=== PATIENT | female | born 1940 | race Caucasian/White ===

== ENCOUNTER 2017-12-09 14:02 | Observation (INO) ==
[2017-12-09 14:51] LABS: Hematocrit 42.4 % (35.3-44.9); Hemoglobin 14.4 g/dL (11.5-15.4); Mean Corpuscular Hemoglobin 33.3 pg (28.0-33.3); Mean Corpuscular Volume 98.1 fL (83.0-100.0); Mean Platelet Volume 8.8 fL (9.4-12.4); Platelet Count 229 K/mcL (140-400); Red Blood Count 4.32 M/mcL (3.82-4.97); Red Cell Distribution Width 12.4 % (11.5-14.5)
[2017-12-09 15:02] LABS: Prothrombin Time 11.4 Seconds (9.4-12.1)
[2017-12-09 15:13] LABS: BUN/Creatinine Ratio 22 (6-26); Blood Urea Nitrogen 18 mg/dL (8-23); Calcium 9.7 mg/dL (8.6-10.3); Carbon Dioxide 29 mEq/L (23-29); Chloride 102 mEq/L (98-107); Glucose 101 mg/dL (70-105); Osmolality,Calculated 290 (280-300); Potassium 4.4 mEq/L (3.5-5.1); Sodium 139 mEq/L (136-145); eGFR For Non-African Americans > 60 (> 60)
[2017-12-09 15:14] LABS: Troponin I < 0.03 ng/mL (< 0.04)
[2017-12-09] MEDS ORDERED: Aspirin 81 MG TAB.CHEW PO ONE (15:36)
[2017-12-09 16:01] LABS: Bilirubin,Urine Negative (Negative); Blood,Urine Trace-intact (Negative); Clarity,Urine Clear (Clear); Color,Urine Yellow (Yellow); Glucose,Urine (UA) Normal (Normal); Ketones,Urine Negative (Negative); Leukocyte Esterase,Urine Moderate (Negative); Nitrite,Urine Negative (Negative); Protein,Urine Negative (Neg-Trace); Specific Gravity,Urine 1.015 (1.010-1.025); Urobilinogen,Urine Normal (Normal)
[2017-12-09 16:11] LABS: Bacteria,Urine Many per hpf (None-Few); RBC,Urine 0-3 per hpf (0-3); Squamous Epithelial Cell,Urine Few per lpf (None-Few)
[2017-12-09] MEDS ORDERED: Naloxone 0.4 MG/ML INJ IVP PRN (16:22)
[2017-12-09] MEDS ORDERED: Latanoprost 2.5 ML BOTTLE BOTH EYES PRN (17:26)
[2017-12-09] MEDS ORDERED: Nitroglycerin 0.4 MG TAB.SUBL SL PRN (17:26)
--- NOTE | 2017-12-09 19:23 | Emergency Department Note ---
Disposition Clinical Impression: TIA (transient ischemic attack) Disposition: Admitted As Inpatient Condition: Undetermined Time of Disposition: 15:37 (accepted by Dr García at 15:35) Neuro HPI - General Chief Complaint: ED Neuro Symptoms/Deficit Stated Complaint: FREQUENT FALLS Time Seen by Provider: 12/09/17 14:12 Source: patient, family Limitations: no limitations Nursing Notes Reviewed: Yes Vital Signs Reviewed: Yes - History of Present Illness HPI Narrative: Patient is a pleasant 77 yo F with past medical history significant for HTN, CVA, CAD, Dyslipidemia and arthritis who is presenting to [facility] Emergency Room with a chief complaint off fall after she might experienced left side numbness and heaviness.She already had stroke last December and underwent rehab and PT. She still has residual left side numbness and states her symptoms are aggarvated. No difficulty finding the word. Her daughter in the room states these are thge same symptoms and exam no changes. Pt later on was ablke to ambulate and walk to the bath rom without any assistance or a walker. Patient denies any fever, chills or night sweats. Pt also denies any eye pain or visual disturbances. There is no sore throat, nasal drainages or facial congestion. There is no chest pain, palpitations or racing heart. Pt also denies any shortness of breath, cough or chest congestion. There is no abdominal pain, yasmine sea, vomiting or diarrhea. There is no urgency, frequency or dysuria. There is no muskulo-skeletal pain, arthralgia or back pain. Patient also denies any rash, edema or pruritus. There is no other neurological manifestations, no headache, no vertigo or generalized or focal weakness. The patient also denies any anxiety, depression, hallucinations and has no homicidal or suicidal ideations. There is no polyuria, polydipsia or recent weight change. There is no easy bruising or bleeding. Review of other systems is otherwise negative except above. Onset of Symptoms Date: 12/09/17 Onset of Symptoms Time: 12:30 Symptom Onset Unknown: Yes Timing confirmed by: caregiver Location: left arm, left leg History of same: Yes Severity: mild Quality: numbness Symptoms Improving: Yes - Related Data Home Medications: Home Medications Medication Instructions Recorded Confirmed Albuterol Sulfate [Ventolin Hfa] 2 puff IH Q6H PRN 02/10/17 12/09/17 Bimatoprost [Lumigan] 1 drop BOTH EYES DAILY PRN 02/10/17 12/09/17 Cholecalciferol (D-3) [Vitamin D] 1,000 unit PO DAILY 02/10/17 12/09/17 Diclofenac Sodium [Voltaren] 2 gm TP Q8H 02/10/17 12/09/17 FLUoxetine HCl [Fluoxetine HCl] 40 mg PO DAILY 02/10/17 12/09/17 Levothyroxine Sodium [Levoxyl] 125 mcg PO DAILY 02/10/17 12/09/17 Metoprolol [Lopressor] 100 mg PO BID 02/10/17 12/09/17 Nitroglycerin [Nitrostat] 0.4 mg SL AD PRN 02/10/17 12/09/17 Pravastatin Sodium [Pravachol] 40 mg PO DAILY 02/10/17 12/09/17 Ranitidine HCl [Acid Tnt Powder Worker] 150 mg PO HS 02/10/17 12/09/17 cloNIDine HCl [CloNIDine HCl] 0.1 mg PO HS 02/10/17 12/09/17 Clopidogrel [Plavix] 75 mg PO DAILY 07/14/17 12/09/17 Aspirin [Lo-Dose Aspirin EC] 81 mg PO DAILY 12/09/17 12/09/17 Dicyclomine [Bentyl] 10 mg PO AD PRN 12/09/17 12/09/17 amLODIPine [Norvasc] 5 mg PO DAILY 12/09/17 12/09/17 Allergies/Adverse Reactions: Allergies Allergy/AdvReac Type Severity Reaction Status Date / Time celecoxib [From Celebrex] Allergy Rash Verified 07/14/17 06:23 ibuprofen [From Motrin] Allergy Rash Verified 07/14/17 06:23 Penicillins [PCN] Allergy Swelling Verified 07/14/17 06:23 of Lip/Tongue/Throat Sulfa (Sulfonamide Allergy Rash Verified 07/14/17 06:23 Antibiotics) All systems ED: reviewed and negative except as stated. Review of Systems: As Per HPI Constitutional: Denies: fever, chills, weakness, weight change Eyes: Denies: eye pain, eye discharge, vision change ENT ED: Denies: ear pain, throat pain, dental pain, hearing loss, epistaxis, congestion, dysphagia Cardiovascular: Denies: chest pain, palpitations, dyspnea on exertion, edema, syncope Respiratory: Denies: cough, dyspnea, wheezes, hemoptysis, stridor Gastrointestinal: Denies: abdominal pain, nausea, vomiting, diarrhea, constipation, hematemesis, melena, hematochezia Genitourinary: Denies: dysuria, frequency, hematuria, discharge Musculoskeletal: Denies: back pain, neck pain, arthralgia, myalgia Integumentary: Denies: rash, abrasion, lesions Neurological: Reports: numbness. Denies: headache, paresthesias, confusion, abnormal gait, vertigo Psychiatric: Denies: anxiety, depression, suicidal thoughts, homicidal thoughts, auditory hallucinations, visual hallucinations Endocrine: Denies: fatigue Hematological/Lymphatic: Denies: easy bleeding, easy bruising Allergic/Immunologic: Denies: facial swelling, urticaria Past Medical History - Past Medical History Medical history: Reports: arthritis, coronary artery disease, CVA, GERD, hyperlipidemia, hypertension, myocardial infarction, osteoporosis, thyroid disease, other Surgical history: Reports: carotid endarterectomy, cholecystectomy, hysterectomy, orthopedic, other Psychiatric history: Reports: anxiety, depression - Social History Smoking Status: Never smoker Smokeless Tobacco Status: No Alcohol use: Reports: none Drug use: Reports: none Physical Exam - General Limitations: no limitations General appearance: alert - Head Head exam: atraumatic, normocephalic, normal inspection - Eye Eye exam: Present: normal appearance, PERRL, EOMI - Expanded Eye Exam Pupils: Left: reactive - ENT ENT exam: normal exam, normal oropharynx, mucous membranes moist - Expanded ENT Exam External ear exam: Present: normal external inspection Mouth exam: Present: normal external inspection Teeth exam: Present: normal inspection Throat exam: Present: normal inspection - Neck Neck exam: Present: normal inspection, full ROM, trachea midline - Chest Chest inspection: Present: normal inspection, symmetric chest wall rise - Respiratory Respiratory exam: Present: normal lung sounds bilaterally - Cardiovascular Cardiovascular exam: Present: regular rate, normal rhythm, normal heart sounds - Abdominal Exam Abdominal exam: Present: soft, Non-Tender. Absent: tenderness, distention, guarding, rebound, rigidity - Extremities Exam Extremities exam: Present: normal inspection, full ROM. Absent: tenderness, pedal edema - Expanded Upper Extremity Exam Shoulder exam: Present: normal inspection, full ROM Arm exam: Present: normal inspection, full ROM Elbow exam: Present: normal inspection, full ROM Forearm/Wrist exam: Present: normal inspection, full ROM Hand exam: Present: normal inspection, full ROM Vascular exam: Normal: capillary refill, radial pulse - Expanded Lower Extremity Exam Hip/Pelvis exam: Present: normal inspection, full ROM Upper leg exam: Present: normal inspection, full ROM Knee exam: Present: normal inspection, full ROM Lower leg exam: Present: normal inspection, full ROM Ankle exam: Present: normal inspection, full ROM Foot/toe exam: Present: normal inspection, full ROM Neurovascular/Tendon exam: Absent: motor deficit, sensory deficit, tendon deficit - Back Exam Back exam: Present: normal inspection, full ROM. Absent: tenderness - Neurological Exam Neurological exam: Present: alert, oriented X3, CN II-XII intact (except baseline subtle unequal faciolabial fold - chronic per the daughter) - Expanded Neurological Exam Patient oriented to: Present: person, place, time Cerebellar function: normal gait Motor strength - LUE: 3/5 Motor strength - RUE: 5/5 Motor strength - LLE: 3/5 Motor strength - RLE: 5/5 Coma Scale Eye Opening: Spontaneous Coma Scale Motor Response: Obeys Commands Coma Scale Verbal Response: Oriented Coma Scale Total: 15 - Psychiatric Psychiatric exam: Present: normal affect, normal mood - Skin Skin exam: Present: warm, dry, intact, normal color Course Vital Signs Temperature 98.8 F 12/09/17 14:07 Pulse Rate 64 12/09/17 14:07 Respiratory Rate 20 12/09/17 14:07 Blood Pressure 169/80 12/09/17 14:07 O2 Sat by Pulse Oximetry 95 12/09/17 14:07 Temperature 98.3 F 12/09/17 15:31 Pulse Rate 57 12/09/17 15:59 Respiratory Rate 13 12/09/17 15:59 Blood Pressure 158/55 12/09/17 15:59 O2 Sat by Pulse Oximetry 93 12/09/17 15:59 Oxygen Delivery Oxygen Delivery Room Air Neuro Symptoms/Deficit - MDM Narrative Medical decision making narrative: Pt's symptoms totally resolved and was able to ambulate with no assistance to the bathroom and without a walker - Differential Diagnosis Likely: cerebrovascular accident, subarachnoid hemorrhage, transient cerebral ischemia, multiple sclerosis, convulsions - Medical Records Medical records reviewed: Yes I reviewed the patient's medical records. - Lab Data Lab results reviewed: Yes I reviewed the patient's lab results. Result diagrams: 12/09/17 14:45 12/09/17 14:45 Lab Results 12/09/17 12/09/17 12/09/17 Range/Units 14:45 14:45 14:45 WBC 9.8 (4.3-11.1) K/mcL RBC 4.32 (3.82-4.97) M/mcL Hgb 14.4 (11.5-15.4) g/dL Hct 42.4 (35.3-44.9) % MCV 98.1 (83.0-100.0) fL MCH 33.3 (28.0-33.3) pg MCHC 34.0 (31.6-35.5) g/dL RDW 12.4 (11.5-14.5) % Plt Count 229 (140-400) K/mcL MPV 8.8 L (9.4-12.4) fL PT 11.4 (9.4-12.1) Seconds INR 1.0 APTT 31.0 (26.0-36.0) Seconds Sodium 139 (136-145) mEq/L Potassium 4.4 (3.5-5.1) mEq/L Chloride 102 (98-107) mEq/L Carbon Dioxide 29 (23-29) mEq/L BUN 18 (8-23) mg/dL Creatinine 0.81 (0.60-1.20) mg/dL Est GFR ( Amer) > 60 (> 60) Est GFR (Non-Af Amer) > 60 (> 60) BUN/Creatinine Ratio 22 (6-26) Glucose 101 (70-105) mg/dL Calculated Osmolality 290 (280-300) Calcium 9.7 (8.6-10.3) mg/dL Troponin I < 0.03 (< 0.04) ng/mL Urine Color (Yellow) Urine Clarity (Clear) Urine pH (5.0-8.0) pH Units Ur Specific [place] (1.010-1.025) Urine Protein (Neg-Trace) mg/dL Urine Glucose (UA) (Normal) mg/dL Urine Ketones (Negative) mg/dL Urine Blood (Negative) Urine Nitrite (Negative) Urine Bilirubin (Negative) Urine Urobilinogen (Normal) mg/dL Ur Leukocyte Esterase (Negative) Urine Microscopic RBC (0-3) per hpf Urine Microscopic WBC (0-3) per hpf Ur Squamous Epith Cells (None-Few) per lpf Urine Bacteria (None-Few) per hpf Ur Culture Indicated? (NO) 12/09/17 Range/Units 15:35 WBC (4.3-11.1) K/mcL RBC (3.82-4.97) M/mcL Hgb (11.5-15.4) g/dL Hct (35.3-44.9) % MCV (83.0-100.0) fL MCH (28.0-33.3) pg MCHC (31.6-35.5) g/dL RDW (11.5-14.5) % Plt Count (140-400) K/mcL MPV (9.4-12.4) fL PT (9.4-12.1) Seconds INR APTT (26.0-36.0) Seconds Sodium (136-145) mEq/L Potassium (3.5-5.1) mEq/L Chloride (98-107) mEq/L Carbon Dioxide (23-29) mEq/L BUN (8-23) mg/dL Creatinine (0.60-1.20) mg/dL Est GFR ( Amer) (> 60) Est GFR (Non-Af Amer) (> 60) BUN/Creatinine Ratio (6-26) Glucose (70-105) mg/dL Calculated Osmolality (280-300) Calcium (8.6-10.3) mg/dL Troponin I (< 0.04) ng/mL Urine Color Yellow (Yellow) Urine Clarity Clear (Clear) Urine pH 7.0 (5.0-8.0) pH Units Ur Specific [place] 1.015 (1.010-1.025) Urine Protein Negative (Neg-Trace) mg/dL Urine Glucose (UA) Normal (Normal) mg/dL Urine Ketones Negative (Negative) mg/dL Urine Blood Trace-intact H (Negative) Urine Nitrite Negative (Negative) Urine Bilirubin Negative (Negative) Urine Urobilinogen Normal (Normal) mg/dL Ur Leukocyte Esterase Moderate H (Negative) Urine Microscopic RBC 0-3 (0-3) per hpf Urine Microscopic WBC 3-5 H (0-3) per hpf Ur Squamous Epith Cells Few (None-Few) per lpf Urine Bacteria Many H (None-Few) per hpf Ur Culture Indicated? YES A (NO) - Radiology Data Radiology results reviewed: Yes I reviewed the patient's radiology results. negative CT scan - EKG Data EKG attestation: Yes I reviewed and interpreted this EKG. EKG shows normal: sinus rhythm NIH Stroke Scale - Level of Consciousness LOC: Alert - LOC Questions LOC Questions: Answers both correctly - LOC Commands LOC Commands: Performs both correctly - Best Gaze Best Gaze: Normal - Visual Visual: No visual loss - Facial Palsy Facial Palsy: Normal - Motor Arms Motor Arm-Left: No drift for 10 seconds Motor Arm-Right: No drift for 10 seconds - Motor Legs Motor Leg-Left: No drift for 5 seconds Motor Leg-Right: No drift for 5 seconds - Limb Ataxia Limb Ataxia: Absent of affected limb too weak to perform exam - Sensory Sensory: Mild to moderate loss, "not as sharp" - Best Language Best Language: No aphasia - Dysarthria Dysarthria: Normal - Extinction and Inattention Extinction and Inattention: Normal - NIHSS Total Score NIHSS Total Score: 1 TPA Checklist - LKW: 3-4.5 hrs Add. Warnings/Precautions Patient/family understanding: The patient/family members have been counseled and understood the risk, benefit, and alternatives of treatment.
[2017-12-09] MEDS ORDERED: cloNIDine HCl 0.1 MG TABLET PO SCH (21:00)
[2017-12-09] MEDS ORDERED: Famotidine 20 MG TABLET PO SCH (21:00)
[2017-12-09] MEDS: Acetaminophen 325 MG TABLET PO PRN (22:21)
[2017-12-10] MEDS: DICLOFENAC TP SCH ×2 (00:22→10:02)
[2017-12-10 03:44] LABS: Basophils % 0.6 %; Eosinophils # 0.2 K/mcL (0.0-0.6); Hematocrit 36.9 % (35.3-44.9); Hemoglobin 12.4 g/dL (11.5-15.4); Immature Granulocytes % 0.4 % (0-4); Lymphocytes # 1.8 K/mcL (0.6-4.6); Lymphocytes % 25.9 %; Mean Corpuscular HGB Conc 33.6 g/dL (31.6-35.5); Mean Corpuscular Hemoglobin 33.2 pg (28.0-33.3); Mean Corpuscular Volume 98.9 fL (83.0-100.0); Mean Platelet Volume 9.1 fL (9.4-12.4); Monocytes # 0.7 K/mcL (0.0-1.3); Monocytes % 10.1 %; Neutrophils # 4.2 K/mcL (1.6-8.9); Platelet Count 191 K/mcL (140-400); Red Blood Count 3.73 M/mcL (3.82-4.97); Red Cell Distribution Width 12.6 % (11.5-14.5)
[2017-12-10 03:54] LABS: Prothrombin Time 11.4 Seconds (9.4-12.1)
[2017-12-10 03:57] LABS: Activated Partial Thrombo Time 29.3 Seconds (26.0-36.0)
[2017-12-10 04:07] LABS: BUN/Creatinine Ratio 28 (6-26); Blood Urea Nitrogen 19 mg/dL (8-23); Carbon Dioxide 27 mEq/L (23-29); Chloride 104 mEq/L (98-107); Chol/HDL Ratio 4.3 (0-4.9); Cholesterol 154 mg/dL (< 200); Glucose 134 mg/dL (70-105); HDL Cholesterol 36 mg/dL (40-59); LDL Cholesterol,Calculated 83 mg/dL (0-99); Magnesium 2.1 mg/dL (1.6-2.6); Osmolality,Calculated 292 (280-300); Phosphorous 3.3 mg/dL (2.7-4.5); Potassium 3.9 mEq/L (3.5-5.1); Sodium 139 mEq/L (136-145); Triglycerides 176 mg/dL (< 150); eGFR For Non-African Americans > 60 (> 60)
[2017-12-10 06:08] VITALS: BP 144/84
[2017-12-10] MEDS: Acetaminophen 325 MG TABLET PO PRN (08:27)
[2017-12-10] MEDS ORDERED: amLODIPine 5 MG TABLET PO SCH (09:00)
[2017-12-10] MEDS ORDERED: Aspirin Enteric Coated 81 MG Tablet PO SCH (09:00)
[2017-12-10] MEDS ORDERED: FLUoxetine 20 MG CAPSULE PO SCH (09:00)
[2017-12-10] MEDS ORDERED: Cholecalciferol (D-3) 1,000 UNIT TABLET PO SCH (09:00)
--- NOTE | 2017-12-10 09:58 | Internal Med History&Physical ---
Date of Encounter: 12/10/17 Time of Encounter: 09:30 Assessment and Plan (1) Fall Current visit: Yes Status: Acute Sounds mechanical rather than neurologic etiology. She denies significant injury. She wishes to be discharged home. Qualifiers: Encounter type: initial encounter Qualified Code(s): W19.XXXA - Unspecified fall, initial encounter (2) Hypertension Current visit: Yes Status: Chronic Continue Norvasc, clonidine, and Lopressor Qualifiers: Hypertension type: essential hypertension Qualified Code(s): I10 - Essential (primary) hypertension (3) CAD (coronary artery disease) Current visit: Yes Status: Chronic Continue aspirin, Plavix, Norvasc, and Lopressor Qualifiers: Coronary Disease-Associated Artery/Lesion type: unspecified vessel or lesion type [place] vs. transplanted heart: habemat[place]l heart Associated angina: angina presence unspecified Qualified Code(s): I25.10 - Atherosclerotic heart disease of [place] coronary artery without angina pectoris (4) Hypothyroidism Current visit: Yes Status: Chronic TSH was normal at 1.639 on 11/07/2017. Continue present dose Synthroid Qualifiers: Hypothyroidism type: unspecified Qualified Code(s): E03.9 - Hypothyroidism, unspecified Internal Medicine - H&P: HPI Chief complaint: Fall Admitted From: Emergency Dept Plans for Post Hospital Care: Home History of present illness: Ms. Walker is a 77 year old female who came to emergency room after experiencing a fall at home. She states she was attempting to get off the couch to answer the phone and had weakness in her left leg causing her to lose her balance and fall to the floor. There was no significant injury. She was able to get off the floor with the assistance of a home health care provider who was present at the time. She was brought to emergency room and evaluated and was felt to deserve overnight observation. She denies any significant injury. She states she typically uses a walker to ambulate in her house. She had previous fall approximately 3 weeks ago without significant injury. She reports a CVA December 2016 with left sided numbness and weakness. She was hospitalized at [facility] in [place] and transition to a rehabilitation facility for 6 weeks of inpatient therapy. She has continued outpatient therapy with home health services until very recently. She states she feels back to her baseline now and wishes to be discharged home. She denies other previous strokes, seizures, or other neurologic problems. Past Med Surg Social Fam HX - Past Medical History Medical history: arthritis, coronary artery disease, CVA, GERD, hyperlipidemia, hypertension, myocardial infarction, osteoporosis, thyroid disease, other Additional medical history: IBS Psychiatric history: anxiety, depression - Past Surgical History Surgical History: carotid endarterectomy, cholecystectomy, hysterectomy, orthopedic, other - Social History Smoking Status: Never smoker Smokeless Tobacco Status: No Alcohol use: none Drug use: none - Family History Father Living Status: Hx Family Cardiac Disorders: Yes ([place]) Internal Medicine - H&P: Meds Albuterol Sulfate [Ventolin Hfa] 2 puff IH Q6H PRN 02/10/17 [History] Bimatoprost [Lumigan] 1 drop BOTH EYES DAILY PRN 02/10/17 [History] Cholecalciferol (D-3) [Vitamin D] 1,000 unit PO DAILY 02/10/17 [History] Diclofenac Sodium [Voltaren] 2 gm TP Q8H 02/10/17 [History] FLUoxetine HCl [Fluoxetine HCl] 40 mg PO DAILY 02/10/17 [History] Levothyroxine Sodium [Levoxyl] 125 mcg PO DAILY 02/10/17 [History] Metoprolol [Lopressor] 100 mg PO BID 02/10/17 [History] Nitroglycerin [Nitrostat] 0.4 mg SL AD PRN 02/10/17 [History] Pravastatin Sodium [Pravachol] 40 mg PO DAILY 02/10/17 [History] Ranitidine HCl [Acid Kiln Operator] 150 mg PO HS 02/10/17 [History] cloNIDine HCl [CloNIDine HCl] 0.1 mg PO HS 02/10/17 [History] Clopidogrel [Plavix] 75 mg PO DAILY 07/14/17 [History] Aspirin [Lo-Dose Aspirin EC] 81 mg PO DAILY 12/09/17 [History] Dicyclomine [Bentyl] 10 mg PO AD PRN 12/09/17 [History] amLODIPine [Norvasc] 5 mg PO DAILY 12/09/17 [History] Allergy/AdvReac Type Severity Reaction Status Date / Time celecoxib [From Celebrex] Allergy Rash Verified 07/14/17 06:23 ibuprofen [From Motrin] Allergy Rash Verified 07/14/17 06:23 Penicillins [PCN] Allergy Swelling Verified 07/14/17 06:23 of Lip/Tongue/Throat Sulfa (Sulfonamide Allergy Rash Verified 07/14/17 06:23 Antibiotics) All Systems PM: A 10-system review of systems was performed and is negative for pertinent findings except as documented above in the HPI. Review of systems: Gen.: She states her weight has been stable the past few months Cardiovascular: She has history of hypertension. She has known ASHD status post [place] 1989. Her most recent heart catheter was 2013 without intervention. She denies any stents or CABG surgery. She claims a diagnosis of CHF. She is uncertain if she has paroxysmal atrial fibrillation but states she has had "irregular heartbeat" in the past. She reports 2 left carotid endarterectomy surgeries in the past. Respiratory: She is a lifelong nonsmoker and denies chronic lung disease GI: She has had cholecystectomy. She denies disorders of her liver or exocrine pancreas : She has had multiple UTIs in the past. She denies other kidney or bladder disorders. Neurologic: As per history of present illness Endocrine: She has hypothyroidism and hyperlipidemia. She denies diabetes. Hematology/oncology: She denies blood disorders cancers or anemia Psychiatric: She denies anxiety depression or other mental health issues [place] skeletal: She has DJD but denies gout or other bone joint or muscle disorders. - Constitutional Vitals: Temp Pulse Resp BP Pulse Ox 98.2 F 62 16 144/84 95 12/10/17 06:02 12/10/17 06:02 12/10/17 06:02 12/10/17 06:02 12/10/17 06:02 Exam: Gen.: She is a well-developed well-nourished female sitting in a chair at bedside resting comfortably who appears in no acute distress HEENT: Head is atraumatic and normocephalic. Eyes: EOMI. There is no scleral icterus. Mouth: Mucosa is moist. Neck: Supple and nontender. There is no thyromegaly or adenopathy noted. Heart: Regular without murmurs gallops or ectopics Lungs: No wheezes or crackles are heard. Abdomen: Soft and nontender. Exam is limited because she is in the seated position. Extremities: There is no cyanosis edema or clubbing noted. Dorsalis pedis and posttibial pulses are 1-2 over 2 bilaterally. Neurologic: Mental status: She is talkative and a good historian. Cranial nerves: Smile is symmetric. Forehead wrinkles bilaterally. Tongue protrudes midline. EOMI. Motor: She has slight left arm pronator drift. Ankle and knee flexion and extension strength against resistance is 2 over 2 bilaterally. Cerebellar: Finger to nose is intact bilaterally. Skin: Warm and dry Internal Med - H&P Results - Labs CBC & Chem 7: 12/10/17 02:50 12/10/17 02:50 Labs: Short CBC 12/09/17 12/10/17 Range/Units 14:45 02:50 WBC 9.8 7.0 (4.3-11.1) K/mcL Hgb 14.4 12.4 D (11.5-15.4) g/dL Hct 42.4 36.9 (35.3-44.9) % Plt Count 229 191 (140-400) K/mcL Neutrophils # 4.2 (1.6-8.9) K/mcL BMP 12/09/17 12/10/17 14:45 02:50 Sodium 139 139 Potassium 4.4 3.9 Chloride 102 104 Carbon Dioxide 29 27 BUN 18 19 Creatinine 0.81 0.67 Glucose 101 134 H Calcium 9.7 9.0 Cardiac Enzymes 12/09/17 12/09/17 12/10/17 Range/Units 14:45 21:00 04:15 Troponin I < 0.03 < 0.03 < 0.03 (< 0.04) ng/mL 12/10/17 Range/Units 08:35 Troponin I < 0.03 (< 0.04) ng/mL Urine 12/09/17 Range/Units 15:35 Urine Color Yellow (Yellow) Urine Clarity Clear (Clear) Urine pH 7.0 (5.0-8.0) pH Units Ur Specific [place] 1.015 (1.010-1.025) Urine Protein Negative (Neg-Trace) mg/dL Urine Glucose (UA) Normal (Normal) mg/dL - Impressions ITS Impressions Cervical Spine CT 12/09/17 14:17 IMPRESSION: No acute osseous abnormality of the cervical spine. Multilevel degenerative disc disease with facet arthropathy and resultant neural foraminal stenosis. If there is further concern for infection, nerve root compression or disc herniation correlation to MRI imaging would be recommended. D/ /09/2017 14:39:28 Constantine Randle MD / [facility] Interpreting Provider: Constantine Randle MD Head CT 12/09/17 14:17 IMPRESSION: No acute intracranial abnormality. Age related changes including chronic small vessel ischemic disease and cerebral atrophy. D/ / 12/09/2017 14:38:42 Kimberly Duarte MD / [facility] Interpreting Provider: Kimberly Duarte MD
--- NOTE | 2017-12-10 10:08 | Discharge Summary ---
Orders not resulted at time of discharge: Pending orders 12/09/17 14:24 ECG 12 lead ECG [ECG] Stat 12/09/17 15:35 Culture,Urine [RM] Stat Date of Encounter: 12/10/17 Time of Encounter: 09:30 - Discharge Diagnosis (1) Fall Priority: Primary Status: Acute Qualifiers: Encounter type: initial encounter Qualified Code(s): W19.XXXA - Unspecified fall, initial encounter (2) Hypertension Priority: Secondary Status: Chronic Qualifiers: Hypertension type: essential hypertension Qualified Code(s): I10 - Essential (primary) hypertension (3) CAD (coronary artery disease) Priority: Secondary Status: Chronic Qualifiers: Coronary Disease-Associated Artery/Lesion type: unspecified vessel or lesion type [place] vs. transplanted heart: [place] heart Associated angina: angina presence unspecified Qualified Code(s): I25.10 - Atherosclerotic heart disease of [place] coronary artery without angina pectoris (4) Hypothyroidism Priority: Secondary Status: Chronic Qualifiers: Hypothyroidism type: unspecified Qualified Code(s): E03.9 - Hypothyroidism, unspecified Hospital course: Ms. Walker is a 77 year old female who came to emergency room after experiencing a fall at home. She states she was attempting to get off the couch to answer the phone and had weakness in her left leg causing her to lose her balance and fall to the floor. There was no significant injury. She was able to get off the floor with the assistance of a home health care provider who was present at the time. She was brought to emergency room and evaluated and was felt to deserve overnight observation. Initial orders were written by the emergency room physician. I saw her on December 10 and performed a history and physical. When I saw her she stated she felt back to her baseline. She denied significant injury from the fall. She denies any neurologic symptoms associated with the fall. She wished to be discharged home which I felt was stable. She will follow with her PCP Dr. Moran within 1 week. I encouraged her to use her walker for ambulation at all times. - Time Spent with Patient Total time spent providing and/or coordinating discharge services: - Discharge Medications Home Medications: Albuterol Sulfate [Ventolin Hfa] 2 puff IH Q6H PRN 02/10/17 [History] Bimatoprost [Lumigan] 1 drop BOTH EYES DAILY PRN 02/10/17 [History] Cholecalciferol (D-3) [Vitamin D] 1,000 unit PO DAILY 02/10/17 [History] Diclofenac Sodium [Voltaren] 2 gm TP Q8H 02/10/17 [History] FLUoxetine HCl [Fluoxetine HCl] 40 mg PO DAILY 02/10/17 [History] Levothyroxine Sodium [Levoxyl] 125 mcg PO DAILY 02/10/17 [History] Metoprolol [Lopressor] 100 mg PO BID 02/10/17 [History] Nitroglycerin [Nitrostat] 0.4 mg SL AD PRN 02/10/17 [History] Pravastatin Sodium [Pravachol] 40 mg PO DAILY 02/10/17 [History] Ranitidine HCl [Acid Hand Cigar Making Supervisor] 150 mg PO HS 02/10/17 [History] cloNIDine HCl [CloNIDine HCl] 0.1 mg PO HS 02/10/17 [History] Clopidogrel [Plavix] 75 mg PO DAILY 07/14/17 [History] Aspirin [Lo-Dose Aspirin EC] 81 mg PO DAILY 12/09/17 [History] Dicyclomine [Bentyl] 10 mg PO AD PRN 12/09/17 [History] amLODIPine [Norvasc] 5 mg PO DAILY 12/09/17 [History] Allergies/Adverse Reactions: Allergy/AdvReac Type Severity Reaction Status Date / Time celecoxib [From Celebrex] Allergy Rash Verified 07/14/17 06:23 ibuprofen [From Motrin] Allergy Rash Verified 07/14/17 06:23 Penicillins [PCN] Allergy Swelling Verified 07/14/17 06:23 of Lip/Tongue/Throat Sulfa (Sulfonamide Allergy Rash Verified 07/14/17 06:23 Antibiotics) Date of admission: 12/09/17 16:25 Primary care physician: Marshall Moran DO - Constitutional Vitals: Temp Pulse Resp BP Pulse Ox 98.2 F 62 16 144/84 95 12/10/17 06:02 12/10/17 06:02 12/10/17 06:02 12/10/17 06:02 12/10/17 06:02 - Patient Status Disposition: Home Health Service Condition: Fair - Discharge Instructions Follow Up With: Marshall Moran DO [Primary Care Provider] - 1 week - Diet and Activity Activity: resume usual activities as tolerated Diet: advance to your usual diet
--- NOTE | 2017-12-10 10:09 | Physician Discharge Referral ---
Home Health/Hosp Referral Info Transfer to: Home Health Attending Provider: Jonathan Provider in Charge Post Discharge: PCP (Marshall Moran D.O.) - Diagnosis (1) Fall Priority: Primary Status: Acute (2) Hypertension Priority: Secondary Status: Chronic (3) CAD (coronary artery disease) Priority: Secondary Status: Chronic (4) Hypothyroidism Priority: Secondary Status: Chronic - Respiratory Orders Smoking Cessation: Smoking cessation has been advised. For more information, call the [place] Tobacco Quit Line at 6-334-VUKZ-NOW. - Diet/Nutrition Diet/Nutrition Orders: Cardiac - Activity Activity Orders: Walker - Services Needed Following services are medically necessary services: Nursing, Home Health Aide, Physical Therapy, Occupational Therapy - Transfer Medications Home Medications: Albuterol Sulfate [Ventolin Hfa] 2 puff IH Q6H PRN 02/10/17 [History] Bimatoprost [Lumigan] 1 drop BOTH EYES DAILY PRN 02/10/17 [History] Cholecalciferol (D-3) [Vitamin D] 1,000 unit PO DAILY 02/10/17 [History] Diclofenac Sodium [Voltaren] 2 gm TP Q8H 02/10/17 [History] FLUoxetine HCl [Fluoxetine HCl] 40 mg PO DAILY 02/10/17 [History] Levothyroxine Sodium [Levoxyl] 125 mcg PO DAILY 02/10/17 [History] Metoprolol [Lopressor] 100 mg PO BID 02/10/17 [History] Nitroglycerin [Nitrostat] 0.4 mg SL AD PRN 02/10/17 [History] Pravastatin Sodium [Pravachol] 40 mg PO DAILY 02/10/17 [History] Ranitidine HCl [Acid Sticker Operator] 150 mg PO HS 02/10/17 [History] cloNIDine HCl [CloNIDine HCl] 0.1 mg PO HS 02/10/17 [History] Clopidogrel [Plavix] 75 mg PO DAILY 07/14/17 [History] Aspirin [Lo-Dose Aspirin EC] 81 mg PO DAILY 12/09/17 [History] Dicyclomine [Bentyl] 10 mg PO AD PRN 12/09/17 [History] amLODIPine [Norvasc] 5 mg PO DAILY 12/09/17 [History] Allergies/Adverse Reactions: Allergy/AdvReac Type Severity Reaction Status Date / Time celecoxib [From Celebrex] Allergy Rash Verified 07/14/17 06:23 ibuprofen [From Motrin] Allergy Rash Verified 07/14/17 06:23 Penicillins [PCN] Allergy Swelling Verified 07/14/17 06:23 of Lip/Tongue/Throat Sulfa (Sulfonamide Allergy Rash Verified 07/14/17 06:23 Antibiotics) Certification: Further, I certify that my clinical findings support that this patient is homebound (i.e. 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
--- NOTE | 2017-12-13 14:11 | Electrocardiograph Report ---
[address] [address] Test Date: 2017-12-09 Pat Name: Mary Walker Department: [id number] Room: [facility] Gender: F Posting Clerk: [id number] : 1940 Requested By: Scarlet Castillo Order Number: [id number] Reading MD: Kingston Tijerina Measurements Intervals [place] Rate: 63 P: 34 [place]: 152 QRS: -1 QRSD: 85 T: 46 QT: 423 QTc: 429 Interpretive Statements SINUS RHYTHM NONSPECIFIC ST-T CHANGES Electronically Signed On 12-13-2017 14:10:06 EDT by Kingston Tijerina
== END 2017-12-10 10:40 | disposition home health service (06) ==
LOC: EMEROOPIK 14:02 → INPPIK 14:02
PROVIDERS: ADMIT Internal Medicine; ATTEND Internal Medicine